=== PATIENT | female | born 1995 | race African-American/Black ===

== ENCOUNTER 2017-05-05 11:59 | Emergency (ER) | payer OTHER ==
[~2017-05-05] VITALS: Ht 172.7 cm; Wt 122.5 kg
[~2017-05-05 11:59] MED LIST: AFRIN15 ML; DELSYM30 MG/5 ML PO; FLONASE16 GM; TYLENOL #3 PO; VOLTAREN75 MG PO; ZITHROMAX PO; ZITHROMAX1 G/PKT PO; [UNRECOGNIZED DRUG - OTHER]
[2017-05-05 12:42] LABS: POC - CKMB 2.4 ng/mL (0.0-7.9); POC - TROPONIN <0.05 ng/mL (<=0.05)
== END 2017-05-05 12:40 | disposition hospice, home (50) ==
LOC: CED 11:59
PROVIDERS: Emergency Medicine
DX: O15.02 Eclampsia complicating pregnancy, second trimester (principal); Z88.0 Allergy status to penicillin; Z91.013 Allergy to seafood; Z3A.15 15 weeks gestation of pregnancy
CPT/HCPCS: 36415; 82553; 84484; 96361; 96374; 99291; J2060; J3475